=== PATIENT | female | born 1965 | race African-American/Black ===

== ENCOUNTER 2016-09-05 09:49 | Emergency (ER) | payer MEDICAID ==
[2016-04-24 08:02] VITALS: BMI 33.0
[~2016-09-05 09:49] MED LIST: ADVAIR 250/501 DISK INH; ASMANEX0.24 GM INH; ATROVENT 0.03%30 ML; BAYER CHEWABLE81 MG PO; DIOVAN80 MG PO; IPRAT-ALBUT 0.5-3 ML UPD; LEVAQUIN500 MG PO; LIPITOR20 MG PO; MUCINEX DM ER1 EAC1 PO; NEXIUM40 MG PO; NICODERM C1 PATCH .3 TD; POTASSIUM99 M1 PO; SINGULAIR10 MG PO; TOPROL XL25 MG PO; ZESTORETIC 10/11 TAB PO; [UNRECOGNIZED DRUG - OTHER] PO
== END 2016-09-05 11:36 | disposition home or self-care (01) ==
LOC: D.ER 09:49
DX: S39.012A Strain of muscle, fascia and tendon of lower back, initial encounter (principal); W01.0XXA Fall on same level from slipping, tripping and stumbling without subsequent striking against object, initial encounter; Y93.E5 Activity, floor mopping and cleaning; Y92.89 Other specified places as the place of occurrence of the external cause; M62.838 Other muscle spasm; J45.909 Unspecified asthma, uncomplicated; I10 Essential (primary) hypertension; E87.6 Hypokalemia

== ENCOUNTER 2016-11-22 08:39 | Emergency (ER) | payer MEDICAID ==
[2016-04-24 08:02] VITALS: BMI 33.0
== END 2016-11-22 10:55 | disposition home or self-care (01) ==
LOC: D.ER 08:39
DX: J20.9 Acute bronchitis, unspecified (principal); J45.909 Unspecified asthma, uncomplicated; I10 Essential (primary) hypertension; E87.6 Hypokalemia; F17.200 Nicotine dependence, unspecified, uncomplicated

== ENCOUNTER 2017-01-12 08:26 | Emergency (ER) | payer MEDICAID ==
[2016-04-24 08:02] VITALS: BMI 33.0
== END 2017-01-12 09:42 | disposition left against medical advice (07) ==
LOC: D.ER 08:26
DX: R05 Cough (principal)

== ENCOUNTER 2017-07-23 00:30 | Emergency (ER) | payer SELFPAY ==
[2016-04-24 08:02] VITALS: BMI 33.0
[2017-07-23 02:45] LABS: HCG SERUM NEGATIVE (NEGATIVE)
== END 2017-07-23 04:25 | disposition home or self-care (01) ==
LOC: D.ER 00:30
PROVIDERS: Emergency Medicine
DX: T76.21XA Adult sexual abuse, suspected, initial encounter (principal); R07.89 Other chest pain; I10 Essential (primary) hypertension; R07.81 Pleurodynia; M54.2 Cervicalgia; R10.9 Unspecified abdominal pain; F17.200 Nicotine dependence, unspecified, uncomplicated

== ENCOUNTER 2017-08-16 08:16 | Emergency (ER) | payer SELFPAY ==
[2016-04-24 08:02] VITALS: BMI 33.0
[2017-08-16 10:50] LABS: BASOPHILS 0.4 % (0-2); EOSINOPHILS 1.6 % (0-7); HEMATOCRIT 41.1 % (36.0-48.0); HEMOGLOBIN 13.3 g/dL (12-16); IMMATURE GRANULOCYTES 0.1 % (0-5); LYMPHOCYTES 41.6 % (15-50); MCH 31.4 pg (26.0-34.0); MCHC 32.4 g/dL (31.0-37.0); MCV 97.2 fL (80.0-100.0); MEAN PLATELET VOLUME 10.1 fL (7.4-10.4); MONOCYTES 9.9 % (2-11); NEUTROPHILS 46.4 % (40-80); RBC 4.23 10x6/uL (4.00-5.40); RDW 13.6 % (11.5-14.5); WBC 7.7 10x3/uL (4.8-10.8)
[2017-08-16 10:57] LABS: PLATELET COUNT 237 10x3/uL (130-400)
[2017-08-16 11:00] LABS: ALBUMIN 3.6 g/dL (3.4-5.0); ALKALINE PHOSPHATASE 116 U/L (46-116); ALT (SGPT) 34 U/L (10-68); BILIRUBIN - TOTAL 0.43 mg/dL (0.2-1.3); CALC OSMOLALITY 273 mosm/kg (275-300); CALCIUM 8.7 mg/dL (8.5-10.1); CHLORIDE - SERUM 102 mmol/L (98-107); CREATININE - SERUM 0.8 mg/dL (0.6-1.3); GLUCOSE 84 mg/dL (74-106); POTASSIUM - SERUM 3.8 mmol/L (3.5-5.1); PROTEIN - SERUM 7.7 g/dL (6.4-8.2); SODIUM 138 mmol/L (136-145); UREA NITROGEN 11 mg/dL (7-18); eGFR NON AFRICAN AMERICAN 81 mL/min (90-120)
== END 2017-08-16 10:53 | disposition home or self-care (01) ==
LOC: D.ER 08:16
PROVIDERS: Emergency Medicine
DX: J11.1 Influenza due to unidentified influenza virus with other respiratory manifestations (principal); I10 Essential (primary) hypertension; J45.909 Unspecified asthma, uncomplicated

== ENCOUNTER 2017-10-18 13:51 | Emergency (ER) | payer SELFPAY ==
[2016-04-24 08:02] VITALS: BMI 33.0
== END 2017-10-18 14:57 | disposition home or self-care (01) ==
LOC: D.ER 13:51
DX: S60.411A Abrasion of left index finger, initial encounter (principal); Y04.1XXA Assault by human bite, initial encounter; Y93.89 Activity, other specified; Y92.89 Other specified places as the place of occurrence of the external cause; F17.200 Nicotine dependence, unspecified, uncomplicated

== ENCOUNTER 2017-12-30 08:37 | Emergency (ER) | payer SELFPAY ==
[2016-04-24 08:02] VITALS: BMI 33.0
== END 2017-12-30 08:50 | disposition home or self-care (01) ==
LOC: D.ER 08:37
DX: M79.673 Pain in unspecified foot (principal)

== ENCOUNTER 2018-02-28 18:30 | Emergency (ER) | payer MEDICAID ==
[~2018-02-28] VITALS: Ht 157.5 cm; Wt 81.8 kg
[2018-02-28 18:40] VITALS: Ht 157.5 cm; Wt 81.8 kg
[2018-02-28] MEDS ORDERED: VIBRAMYCIN 100100 MG PO (21:51)
[2018-02-28] MEDS ORDERED: PHENERGAN DM SYR5 ML PO (21:51)
[2018-02-28 23:04] VITALS: BP 174/99
== END 2018-02-28 23:05 | disposition home or self-care (01) ==
LOC: D.ER 18:30
DX: J06.9 Acute upper respiratory infection, unspecified (principal); R05 Cough; R09.89 Other specified symptoms and signs involving the circulatory and respiratory systems; F17.200 Nicotine dependence, unspecified, uncomplicated

== ENCOUNTER 2018-03-15 08:34 | Emergency (ER) | payer MEDICAID ==
[~2018-03-15] VITALS: Ht 157.5 cm; Wt 81.6 kg
[~2018-03-15 08:34] MED LIST changes: +PHENERGAN DM SYR5 ML PO; +VIBRAMYCIN 100100 MG PO
[2018-03-15 08:56] VITALS: Ht 157.5 cm; Wt 81.6 kg
[2018-03-15] MEDS ORDERED: MEDROL DOSE PACK4 MG PO (11:21)
[2018-03-15 12:13] VITALS: BP 181/098
== END 2018-03-15 12:14 | disposition home or self-care (01) ==
LOC: D.ER 08:34
DX: J40 Bronchitis, not specified as acute or chronic (principal); Z87.09 Personal history of other diseases of the respiratory system; R09.89 Other specified symptoms and signs involving the circulatory and respiratory systems; I10 Essential (primary) hypertension

== ENCOUNTER 2018-11-08 16:04 | Emergency (ER) | payer OTHER ==
[~2018-11-08] VITALS: Ht 157.5 cm; Wt 84.1 kg
[~2018-11-08 16:04] MED LIST changes: +MEDROL DOSE PACK4 MG PO
[2018-11-08 16:19] VITALS: Ht 157.5 cm; Wt 84.1 kg
[2018-11-08 16:46] LABS: BASOPHILS 0.2 % (0-2); EOSINOPHILS 1.7 % (0-7); HEMATOCRIT 34.8 % (36.0-48.0); HEMOGLOBIN 11.3 g/dL (12-16); IMMATURE GRANULOCYTES 0.1 % (0-5); LYMPHOCYTES 34.9 % (15-50); MCH 30.9 pg (26.0-34.0); MCHC 32.5 g/dL (31.0-37.0); MCV 95.1 fL (80.0-100.0); MEAN PLATELET VOLUME 10.3 fL (7.4-10.4); MONOCYTES 8.7 % (2-11); NEUTROPHILS 54.4 % (40-80); RBC 3.66 10x6/uL (4.00-5.40); RDW 12.7 % (11.5-14.5)
[2018-11-08 17:02] LABS: ALBUMIN 3.4 g/dL (3.4-5.0); ALKALINE PHOSPHATASE 101 U/L (46-116); ALT (SGPT) 22 U/L (10-68); BILIRUBIN - TOTAL 0.26 mg/dL (0.2-1.3); CALC OSMOLALITY 285 mosm/kg (275-300); CALCIUM 9.2 mg/dL (8.5-10.1); CHLORIDE - SERUM 106 mmol/L (98-107); CREATININE - SERUM 0.8 mg/dL (0.6-1.3); GLUCOSE 109 mg/dL (74-106); MAGNESIUM - SERUM 1.7 mg/dL (1.8-2.4); PROTEIN - SERUM 7.8 g/dL (6.4-8.2); SODIUM 143 mmol/L (136-145); UREA NITROGEN 13 mg/dL (7-18); eGFR NON AFRICAN AMERICAN 80 mL/min (90-120)
[2018-11-08 17:04] LABS: PLATELET COUNT 285 10x3/uL (130-400)
[2018-11-08 17:56] LABS: APPEARANCE CLEAR (CLEAR); BILIRUBIN NEGATIVE (NEGATIVE); COLOR YELLOW (YELLOW); GLUCOSE 100 mg/dL (NEGATIVE); KETONE NEGATIVE (NEGATIVE); NITRITE NEGATIVE (NEGATIVE); PROTEIN NEGATIVE (NEGATIVE); SPECIFIC GRAVITY 1.025 (1.005-1.020); UROBILINOGEN NORMAL (NORMAL)
[2018-11-08 18:06] LABS: UDS - AMPHET NEGATIVE QUAL (NEGATIVE); UDS - BARB NEGATIVE QUAL (NEGATIVE); UDS - BENZO NEGATIVE QUAL (NEGATIVE); UDS - COCAINE POSITIVE QUAL (NEGATIVE); UDS - OPIATE NEGATIVE QUAL (NEGATIVE); UDS - PCP NEGATIVE QUAL (NEGATIVE); UDS - THC POSITIVE QUAL (NEGATIVE)
[2018-11-08] MEDS ORDERED: SEROQUEL100 MG PO (18:55)
[2018-11-08 20:07] VITALS: BP 134/78
== END 2018-11-08 20:10 | disposition home or self-care (01) ==
LOC: D.ER 16:04
PROVIDERS: Emergency Medicine
DX: R44.0 Auditory hallucinations (principal); F14.10 Cocaine abuse, uncomplicated

== ENCOUNTER 2019-04-07 11:02 | Emergency (ER) | payer MEDICAID ==
[~2019-04-07] VITALS: Ht 157.5 cm; Wt 85.0 kg
[~2019-04-07 11:02] MED LIST changes: +SEROQUEL100 MG PO
[2019-04-07 11:05] VITALS: Ht 157.5 cm; Wt 85.0 kg
[2019-04-07 11:39] LABS: BASOPHILS 0.2 % (0-2); EOSINOPHILS 1.5 % (0-7); HEMATOCRIT 38.5 % (36.0-48.0); HEMOGLOBIN 12.3 g/dL (12-16); IMMATURE GRANULOCYTES 0.3 % (0-5); LYMPHOCYTES 28.5 % (15-50); MCH 31.1 pg (26.0-34.0); MCHC 31.9 g/dL (31.0-37.0); MCV 97.2 fL (80.0-100.0); MEAN PLATELET VOLUME 10.1 fL (7.4-10.4); MONOCYTES 8.2 % (2-11); NEUTROPHILS 61.3 % (40-80); PLATELET COUNT 283 10x3/uL (130-400); RBC 3.96 10x6/uL (4.00-5.40)
[2019-04-07 11:49] LABS: INR 1.02 (0.85-1.17); PROTIME 12.9 SECONDS (11.6-15.0)
[2019-04-07 12:01] LABS: ALBUMIN 3.5 g/dL (3.4-5.0); ALKALINE PHOSPHATASE 130 U/L (46-116); ALT (SGPT) 27 U/L (10-68); BILIRUBIN - TOTAL 0.31 mg/dL (0.2-1.3); CALC OSMOLALITY 281 mosm/kg (275-300); CALCIUM 9.1 mg/dL (8.5-10.1); CARBON DIOXIDE 21.7 mmol/L (21.0-32.0); CHLORIDE - SERUM 104 mmol/L (98-107); CREATININE - SERUM 0.7 mg/dL (0.6-1.3); GLUCOSE 150 mg/dL (74-106); POTASSIUM - SERUM 4.4 mmol/L (3.5-5.1); SODIUM 139 mmol/L (136-145); UREA NITROGEN 14 mg/dL (7-18); eGFR NON AFRICAN AMERICAN > 90 mL/min (90-120)
[2019-04-07 12:09] LABS: CREATINE KINASE 200 UL (21-215); PRO BNP 73 pg/mL (0-125)
[2019-04-07 12:10] LABS: TROPONIN-I < 0.017 ng/mL (0.000-0.060)
[2019-04-07] MEDS ORDERED: ZYRTEC10 MG PO (13:03)
[2019-04-07] MEDS ORDERED: ASMANEX0.24 GM INH (13:03)
[2019-04-07] MEDS ORDERED: FLUTICASONE PRO16 GM NASAL (13:03)
[2019-04-07] MEDS ORDERED: IPRAT-ALBUT 0.5-3 ML UPD (13:03)
[2019-04-07 14:00] VITALS: BP 122/79
== END 2019-04-07 14:01 | disposition home or self-care (01) ==
LOC: D.ER 11:02
PROVIDERS: Family Medicine
DX: J45.901 Unspecified asthma with (acute) exacerbation (principal)

== ENCOUNTER 2019-05-06 11:23 | Emergency (ER) | payer MEDICAID ==
[~2019-05-06] VITALS: Ht 157.5 cm; Wt 80.9 kg
[~2019-05-06 11:23] MED LIST changes: +FLUTICASONE PRO16 GM NASAL; +ZYRTEC10 MG PO
[2019-05-06 11:32] VITALS: Ht 157.5 cm; Wt 80.9 kg
[2019-05-06 11:54] LABS: BASOPHILS 0.3 % (0-2); EOSINOPHILS 1.4 % (0-7); HEMATOCRIT 37.3 % (36.0-48.0); HEMOGLOBIN 11.9 g/dL (12-16); IMMATURE GRANULOCYTES 0.4 % (0-5); LYMPHOCYTES 25.6 % (15-50); MCH 31.6 pg (26.0-34.0); MCHC 31.9 g/dL (31.0-37.0); MCV 98.9 fL (80.0-100.0); MEAN PLATELET VOLUME 10.4 fL (7.4-10.4); MONOCYTES 7.2 % (2-11); NEUTROPHILS 65.1 % (40-80); PLATELET COUNT 301 10x3/uL (130-400); RBC 3.77 10x6/uL (4.00-5.40); RDW 13.4 % (11.5-14.5); WBC 12.2 10x3/uL (4.8-10.8)
[2019-05-06 12:01] LABS: CALC OSMOLALITY 282 mosm/kg (275-300); CALCIUM 9.2 mg/dL (8.5-10.1); CARBON DIOXIDE 27.6 mmol/L (21.0-32.0); CHLORIDE - SERUM 104 mmol/L (98-107); CREATININE - SERUM 0.7 mg/dL (0.6-1.3); GLUCOSE 145 mg/dL (74-106); POTASSIUM - SERUM 3.3 mmol/L (3.5-5.1); SODIUM 141 mmol/L (136-145); UREA NITROGEN 9 mg/dL (7-18); eGFR NON AFRICAN AMERICAN > 90 mL/min (90-120)
[2019-05-06 12:07] LABS: ALBUMIN 3.2 g/dL (3.4-5.0); ALKALINE PHOSPHATASE 139 U/L (46-116); ALT (SGPT) 31 U/L (10-68)
[2019-05-06] MEDS ORDERED: MEDROL DOSE PACK4 MG PO (13:43)
[2019-05-06 13:48] VITALS: BP 132/75
== END 2019-05-06 13:50 | disposition home or self-care (01) ==
LOC: D.ER 11:23
PROVIDERS: Family Medicine
DX: J40 Bronchitis, not specified as acute or chronic (principal); I10 Essential (primary) hypertension; F17.210 Nicotine dependence, cigarettes, uncomplicated

== ENCOUNTER 2019-05-23 11:03 | Inpatient (IN) | payer OTHER ==
[~2019-05-23] VITALS: Ht 154.9 cm; Wt 91.0 kg
--- NOTE | 2019-05-23 11:55 | NUR ---
PATIENT JUST ARRIVED TO THE FLOOR. SHE IS ON CONTACT ISOLATION FOR SHINGLES, WHICH IS USUALLY AIRBORN PRECAUTION, HOWEVER, SHE IS ON CONTACT ACCORDING TO ALTERNATIVE ENERGY TECHNICIAN AND CHARGE NURSE, AND INFECTION CONTROL.
--- NOTE | 2019-05-23 12:35 | NUR ---
IV STARTED IN THE RIGHT FOREARM. 20 G ONE STICK. PATIENT TOLERATED. IV FLUIDS STARTED ORDERED. SHE IS ON CONTACT PRECAUTIONS. SHE IS SITTING UP IN BED AND EATTING BREAKFAST. SHE HAS HER LEFT EYE SWOLLEN SHUT. SHE THOUGHT SHE WAS BIT BY A INSECT. ON THE FOREHEAD THERE WAS A SORE THAT LOOKS LIKE A BITE. THAT WAS THURSDAY. SHE WENT TO HER DR OFFICE, DR SAID IT LOOKED LIKE SHINGLES. PATIENT REPORTS THAT HER GRANDMOTHER HAS SHINGLES RIGHT NOW.
[2019-05-23 12:46] LABS: BASOPHILS 0.4 % (0-2); EOSINOPHILS 1.8 % (0-7); HEMOGLOBIN 12.2 g/dL (12-16); IMMATURE GRANULOCYTES 0.1 % (0-5); LYMPHOCYTES 33.6 % (15-50); MCH 31.3 pg (26.0-34.0); MCHC 31.3 g/dL (31.0-37.0); MEAN PLATELET VOLUME 10.6 fL (7.4-10.4); MONOCYTES 9.6 % (2-11); NEUTROPHILS 54.5 % (40-80); PLATELET COUNT 277 10x3/uL (130-400); RDW 13.2 % (11.5-14.5); WBC 6.8 10x3/uL (4.8-10.8)
[2019-05-23 12:51] LABS: CALC OSMOLALITY 279 mosm/kg (275-300); CHLORIDE - SERUM 106 mmol/L (98-107); CREATININE - SERUM 0.7 mg/dL (0.6-1.3); GLUCOSE 105 mg/dL (74-106); POTASSIUM - SERUM 3.8 mmol/L (3.5-5.1); SODIUM 141 mmol/L (136-145); UREA NITROGEN 9 mg/dL (7-18); eGFR NON AFRICAN AMERICAN > 90 mL/min (90-120)
--- NOTE | 2019-05-23 12:53 | NUR ---
CALLED PHARMACY TO GET ANTIBIOTICS BROUGHT UP, THEY WERE STILL PREPARING THEM.
[2019-05-23 12:57] LABS: ALBUMIN 3.3 g/dL (3.4-5.0); ALKALINE PHOSPHATASE 122 U/L (46-116); ALT (SGPT) 27 U/L (10-68); BILIRUBIN - TOTAL 0.36 mg/dL (0.2-1.3); C-REACTIVE PROTEIN 0.6 mg/dL (0.0-0.9); PROTEIN - SERUM 7.7 g/dL (6.4-8.2)
[2019-05-23 14:06] VITALS: BP 140/84; Ht 154.9 cm; Wt 91.0 kg
--- NOTE | 2019-05-23 14:59 | NUR ---
NEW IV IN LEFT FOREARM WITH ANTIBIOTICS INFUSING ORDERED.
--- NOTE | 2019-05-23 15:07 | NUR ---
THE ANTIBIOTIC WAS IN THE CASSETTE AND I HAD LOOKED PAST IT.
--- NOTE | 2019-05-23 15:08 | NUR ---
IV START IN LEFT FOREARM. 22 GAUGE. IV IN RIGHT FOREARM HAD TO BE REMOVED.
[2019-05-23 15:58] LABS: UDS - AMPHET NEGATIVE QUAL (NEGATIVE); UDS - BARB NEGATIVE QUAL (NEGATIVE); UDS - BENZO NEGATIVE QUAL (NEGATIVE); UDS - COCAINE POSITIVE QUAL (NEGATIVE); UDS - OPIATE NEGATIVE QUAL (NEGATIVE); UDS - PCP NEGATIVE QUAL (NEGATIVE); UDS - THC NEGATIVE QUAL (NEGATIVE)
[2019-05-23 16:01] LABS: APPEARANCE CLEAR (CLEAR); BILIRUBIN NEGATIVE (NEGATIVE); COLOR YELLOW (YELLOW); GLUCOSE 100 mg/dL (NEGATIVE); KETONE NEGATIVE (NEGATIVE); NITRITE NEGATIVE (NEGATIVE); PROTEIN NEGATIVE (NEGATIVE); SPECIFIC GRAVITY 1.025 (1.005-1.020); UROBILINOGEN NORMAL (NORMAL)
[2019-05-23 16:02] LABS: RED CELLS - URINE OCC /hpf (0-5); WHITE CELLS - URINE 0-5 /hpf (NEGATIVE)
[2019-05-23 16:05] LABS: BACTERIA FEW /hpf (NEGATIVE); EPITHELIAL CELLS 0-5 /hpf (0-5)
[2019-05-23 17:00] VITALS: BP 170/74
--- NOTE | 2019-05-23 19:15 | NUR ---
RECEIVED REPORT, WILL ASSUME CARE OF PT, ASKING FOR JELLO, ICECREAM AND WATER, WILL PROVIDE, DENIES ANY OTHER NEEDS AT THIS TIME, BED IS LOW, SRX1, CALL LIGHT IN REACH, WILL CONTINUE PLAN OF CARE
[2019-05-23 20:00] VITALS: BP 158/91
[2019-05-24] VITALS: BP 137/67
--- NOTE | 2019-05-24 03:51 | NUR ---
I have reviewed this patient and I concur with the Shift Assessment completed by the Licensed Practical Nurse today this shift.
[2019-05-24 04:00] VITALS: BP 118/79
[2019-05-24 05:31] LABS: BASOPHILS 0.1 % (0-2); EOSINOPHILS 0 % (0-7); HEMATOCRIT 38.2 % (36.0-48.0); IMMATURE GRANULOCYTES 0.4 % (0-5); LYMPHOCYTES 13.8 % (15-50); MCHC 31.4 g/dL (31.0-37.0); MCV 98.7 fL (80.0-100.0); MONOCYTES 4.3 % (2-11); NEUTROPHILS 81.4 % (40-80); PLATELET COUNT 288 10x3/uL (130-400); RBC 3.87 10x6/uL (4.00-5.40)
[2019-05-24 05:48] LABS: ALBUMIN 3.1 g/dL (3.4-5.0); ANION GAP 15.5 mmol/L (8-16); BILIRUBIN - TOTAL 0.19 mg/dL (0.2-1.3); CALCIUM 9.7 mg/dL (8.5-10.1); CARBON DIOXIDE 23.7 mmol/L (21.0-32.0); POTASSIUM - SERUM 4.2 mmol/L (3.5-5.1); PROTEIN - SERUM 7.9 g/dL (6.4-8.2)
[2019-05-24 05:55] LABS: WBC 13.6 10x3/uL (4.8-10.8)
--- NOTE | 2019-05-24 07:09 | NUR ---
RECIEVED REPORT. PATIENT IS RESTING QUIETLY AT THIS TIME. DENIES ANY NEEDS. SHE IS ON CONTACT ISOLATION FOR SHINGLES. NORMALLY WE DO AIRBORN FOR THAT, BUT BECAUSE THE WOUND IS CLOSED AND DRY, SHE IS ONLY ON CONTACT ISOLATION.
[2019-05-24 09:01] VITALS: BP 140/82
[2019-05-24 13:25] VITALS: BP 144/98
--- NOTE | 2019-05-24 13:44 | MORECARE ---
CASE MANAGEMENT DISCHARGE SUMMARY PATIENT: JUAN DIAZ UNIT: [id number] ADM DATE: 05/23/19 AGE: 53 : 69 SEX: F ROOM/BED: D.1966 AUTHOR: JONES,DOC PHYSICIAN: REFERRING PHYSICIAN: JACKELINE SIMS MD DATE OF SERVICE: 05/24/19 Discharge Plan Patient Name: JUAN DIAZ Facility: [facility]:[place] : 1965 Planned Disposition: Home Anticipated Discharge Date: 05/26/19 Discharge Date: Expected LOS: 3 Initial Reviewer: [email or web address] Initial Review Date: 05/23/2019 Generated: 05/24/19 2:44 pm Comments DCP- Discharge Planning Updated by [email or web address]: Shayla Mike on 05/24/19 12:[address] DC PLAN: Home w/ room-mate. ANTICIPATED DC NEEDS: Denied known dc needs. CM met with patient to complete initial dc planning assessment. CM educated patient on the CM role and verbal consent given by patient to complete assessment. CM verified patient's address, phone number, and emergency contact phone numbers. Patient lives at home with a room-mate. She reports she is independent and has everything she needs at home to safely care for herself. At discharge patient plans to return home and feels this is a safe discharge. CM discussed availability of home health, rehab services, and medical equipment. Patient denied known discharge needs at this time. Patient reports her friend Denis Quintero will transport her home at time of discharge. CM will continue to follow and will assist as needed with dc plans/needs. Shayla Mike RN, [facility] DCPIA - Discharge Planning Initial Assessment Updated by [email or web address]: Shayla Mike on 05/24/19 1:39 pm * Is the patient Alert and Oriented? Yes * How many steps to enter\exit or inside your home? * PCP Dr. Sims * Pharmacy [facility] * Preadmission Environment Home Alone * ADLs Independent * Equipment None * List name and contact numbers for known caregivers / representatives who currently or will assist patient after discharge: Denis Quintero - steff- [phone] * Verbal permission to speak to the caregivers and representatives has been obtained from the patient. Yes * Community resources currently utilized None * Additional services required to return to the preadmission environment? No * Can the patient safely return to the preadmission environment? Yes * Has this patient been hospitalized within the prior 30 days at any hospital? No Patient Name: JUAN DIAZ Page [id number] at 1344 All edits/amendments must be made on the electronic document DICTATION DATE: 05/24/19 134 ADVANCED MANUFACTURING CONSULTANT: EDY 05/24/19 1344 RPT#: [id number] DC DATE: STATUS: ADM IN [facility] [address] [place] [address] END OF REPORT
[2019-05-24 17:15] VITALS: BP 145/87
--- NOTE | 2019-05-24 19:00 | NUR ---
EVENING ROUNDS COMPLETE. PT SITTING UP IN BED, NO SIGNS OF DISTRESS. AAOX4. PT DENIES ANY NEEDS AT THIS TIME. CL IN REACH, BED IN LOWEST POSITION.
[2019-05-24 20:00] VITALS: BP 162/83
[2019-05-25] VITALS: BP 133/83
[2019-05-25 06:27] VITALS: BP 146/88
[2019-05-25 06:53] LABS: ALBUMIN 3.1 g/dL (3.4-5.0); ANION GAP 15.9 mmol/L (8-16); BILIRUBIN - TOTAL 0.16 mg/dL (0.2-1.3); CALCIUM 9.3 mg/dL (8.5-10.1); CARBON DIOXIDE 22.8 mmol/L (21.0-32.0); POTASSIUM - SERUM 4.7 mmol/L (3.5-5.1); PROTEIN - SERUM 7.4 g/dL (6.4-8.2)
[2019-05-25 07:04] LABS: BASOPHILS 0.1 % (0-2); EOSINOPHILS 0 % (0-7); HEMATOCRIT 35.8 % (36.0-48.0); HEMOGLOBIN 11.1 g/dL (12-16); IMMATURE GRANULOCYTES 0.5 % (0-5); MCH 30.9 pg (26.0-34.0); MCV 99.7 fL (80.0-100.0); MEAN PLATELET VOLUME 11.2 fL (7.4-10.4); MONOCYTES 7.7 % (2-11); NEUTROPHILS 77.7 % (40-80); PLATELET COUNT 319 10x3/uL (130-400); RBC 3.59 10x6/uL (4.00-5.40); RDW 13.1 % (11.5-14.5)
[2019-05-25 07:05] LABS: WBC 18.8 10x3/uL (4.8-10.8)
--- NOTE | 2019-05-25 07:10 | NUR ---
PT LYING IN BED WITH HOB ELEVATED. EYES CLOSED. CHEST RISING AND FALLING. ROOM AIR. LEFT FA 22G IV INFUSING NS AT 75ML/HR. LEFT EYE SWOLLEN. BED LOW. CL IN REACH. WILL CONTINUE TO MONITOR.
[2019-05-25 09:36] VITALS: BP 164/92
--- NOTE | 2019-05-25 11:23 | NUR ---
SCD'S PLACED ON PT.
--- NOTE | 2019-05-25 14:35 | NUR ---
PT LYING IN BED. EYES CLOSED. CHEST RISING AND FALLING. BED LOW. CL IN REACH. WILL CONTINUE TO MONITOR.
--- NOTE | 2019-05-25 16:21 | NUR ---
PT STATED TO COMPUTATIONAL GENETICIST SHE WANTS TO SEE HER DOCTOR AND SHE IS LEAVING TODAY WITH OR WITHOUT HIS CONSENT. RADHA MCWILLIAMS.
--- NOTE | 2019-05-25 17:00 | NUR ---
SPOKE WITH JANINE BOYD ABOUT PT WANTING TO BE DISCHARGED AND IS WANTING TO SEE HER. JANINE MCWILLIAMS STATES "HER AND DR. HARRIS ROUNDED ON PT BUT SHE WAS ASLEEP AND THEY DID NOT WANT TO WAKE HER. BUT DR. HARRIS DID LOOK AT PT'S EYE AND THINKS THAT IT IS HEALING BUT IT IS NOT WHERE IT NEEDS TO BE AND PT IS NOT READY FOR DISCHARGE. IF PT WANTS TO LEAVE SHE WILL HAVE TO LEAVE AMA." I VERBALIZED UNDERSTANDING. I ASKED IF WE COULD GET SOMETHING TO HELP CALM PT DOWN AND AND JANINE MCWILLIAMS STATES "NO PT IS NOT HAVING DT'S." I VERBALIZED UNDERSTANDING. I SPOKE WTIH PT AND STATED TO HER EVERYTHING JANINE MCWILLIAMS STATED TO ME AND SHE SAID THAT SHE WANTS TO LEAVE AMA. I STATED TO PT "IF YOU LEAVE AMA YOUR HEALTH INSURANCE WILL NOT COVER YOUR STAY AND YOU WILL HAVE TO PAY OUT OF POCKET." PT VERBALIZED UNDERSTANDING AND STATES "I WANT TO LEAVE ANYWAY." I STATED TO PT I WILL GET THE PAPERWORK.
--- NOTE | 2019-05-25 17:14 | NUR ---
LEFT FA 22G IV DC'D WITH CATH INTACT. PT SIGNED AMA FORM AND CALLED HER RIDE. PAGED JANINE MCWILLIAMS TO NOTIFY HER PT IS LEAVING AMA.
--- NOTE | 2019-05-25 17:44 | NUR ---
PT TAKEN DOWN VIA WC BY JARAD AND LEFT WITH FRIEND IN THEIR CAR.
--- NOTE | 2019-05-27 09:54 | MORECARE ---
CASE MANAGEMENT DISCHARGE SUMMARY PATIENT: JUAN DIAZ UNIT: [id number] ADM DATE: 05/23/19 AGE: 53 : 69 SEX: F ROOM/BED: D.6326 AUTHOR: JONES,DOC PHYSICIAN: REFERRING PHYSICIAN: JACKELINE SIMS MD DATE OF SERVICE: 05/27/19 Discharge Plan Patient Name: JUAN DIAZ Facility: [facility]:[place] : 1965 Planned Disposition: Home Anticipated Discharge Date: 05/25/19 Discharge Date: 05/25/2019 Expected LOS: 2 Initial Reviewer: [email or web address] Initial Review Date: 05/23/2019 Generated: 05/27/19 10:53 am DCP- Discharge Planning Updated by [email or web address]: Shayla Mike on 05/24/19 12:[address] DC PLAN: Home w/ room-mate. ANTICIPATED DC NEEDS: Denied known dc needs. CM met with patient to complete initial dc planning assessment. CM educated patient on the CM role and verbal consent given by patient to complete assessment. CM verified patient's address, phone number, and emergency contact phone numbers. Patient lives at home with a room-mate. She reports she is independent and has everything she needs at home to safely care for herself. At discharge patient plans to return home and feels this is a safe discharge. CM discussed availability of home health, rehab services, and medical equipment. Patient denied known discharge needs at this time. Patient reports her friend Denis Quintero will transport her home at time of discharge. CM will continue to follow and will assist as needed with dc plans/needs. Shayla Mike RN, [facility] DCPIA - Discharge Planning Initial Assessment Updated by [email or web address]: Shayla Mike on 05/24/19 1:39 pm * Is the patient Alert and Oriented? Yes * How many steps to enter\exit or inside your home? * PCP Dr. Sims * Pharmacy [facility] * Preadmission Environment Home Alone * ADLs Independent * Equipment None * List name and contact numbers for known caregivers / representatives who currently or will assist patient after discharge: Denis Quintero - friend- [phone] * Verbal permission to speak to the caregivers and representatives has been obtained from the patient. Yes * Community resources currently utilized None * Additional services required to return to the preadmission environment? No * Can the patient safely return to the preadmission environment? Yes * Has this patient been hospitalized within the prior 30 days at any hospital? No Last DP export: 05/24/19 12:44 Patient Name: JUAN DIAZ Page 10292 at 0954 All edits/amendments must be made on the electronic document DICTATION DATE: 05/27/19952 BRIM CUTTER: EDY 05/27/19952 RPT#: [id number] DC DATE:05/25/19 STATUS: DIS IN [facility] [address] [place] [address] END OF REPORT
== END 2019-05-25 17:44 | disposition left against medical advice (07) | DRG 121 ==
LOC: D.M2 11:03
PROVIDERS: Family Medicine; ADMIT Family Medicine; ATTEND Family Medicine
DX: H05.012 Cellulitis of left orbit (principal); B02.30 Zoster ocular disease, unspecified; F17.213 Nicotine dependence, cigarettes, with withdrawal; H00.036 Abscess of eyelid left eye, unspecified eyelid

== ENCOUNTER 2019-05-29 09:29 | Emergency (ER) | payer OTHER ==
[~2019-05-29] VITALS: Ht 154.9 cm; Wt 93.2 kg
[2019-05-29 09:33] VITALS: Ht 154.9 cm; Wt 93.2 kg
[2019-05-29 10:07] LABS: BASOPHILS 0.4 % (0-2); EOSINOPHILS 1.7 % (0-7); HEMATOCRIT 36.5 % (36.0-48.0); HEMOGLOBIN 11.4 g/dL (12-16); IMMATURE GRANULOCYTES 0.9 % (0-5); LYMPHOCYTES 38.8 % (15-50); MCH 31.2 pg (26.0-34.0); MCHC 31.2 g/dL (31.0-37.0); MONOCYTES 8.3 % (2-11); NEUTROPHILS 49.9 % (40-80); PLATELET COUNT 305 10x3/uL (130-400); RBC 3.65 10x6/uL (4.00-5.40); RDW 13.2 % (11.5-14.5); WBC 12.3 10x3/uL (4.8-10.8)
[2019-05-29 10:22] LABS: CALC OSMOLALITY 285 mosm/kg (275-300); CALCIUM 8.8 mg/dL (8.5-10.1); CARBON DIOXIDE 26.6 mmol/L (21.0-32.0); CHLORIDE - SERUM 109 mmol/L (98-107); CREATININE - SERUM 0.8 mg/dL (0.6-1.3); SODIUM 141 mmol/L (136-145); UREA NITROGEN 15 mg/dL (7-18); eGFR NON AFRICAN AMERICAN 80 mL/min (90-120)
[2019-05-29 10:23] LABS: GLUCOSE 175 mg/dL (74-106)
[2019-05-29] MEDS ORDERED: PREDNISONE10 MG PO (10:26)
[2019-05-29] MEDS ORDERED: ZOVIRAX800 MG PO (10:26)
[2019-05-29] MEDS ORDERED: GABAPENTIN100 MG PO (10:26)
[2019-05-29 10:28] LABS: ALBUMIN 2.7 g/dL (3.4-5.0); ALKALINE PHOSPHATASE 126 U/L (46-116); ALT (SGPT) 26 U/L (10-68); BILIRUBIN - TOTAL 0.18 mg/dL (0.2-1.3)
[2019-05-29 10:54] VITALS: BP 138/89
== END 2019-05-29 10:55 | disposition home or self-care (01) ==
LOC: D.ER 09:29
PROVIDERS: Family Medicine
DX: B02.9 Zoster without complications (principal); R51 Headache; E11.9 Type 2 diabetes mellitus without complications; I10 Essential (primary) hypertension; Z72.0 Tobacco use; J44.9 Chronic obstructive pulmonary disease, unspecified

== ENCOUNTER 2019-07-20 04:54 | Emergency (ER) | payer OTHER ==
[~2019-07-20] VITALS: Ht 154.9 cm; Wt 93.6 kg
[~2019-07-20 04:54] MED LIST changes: +GABAPENTIN100 MG PO; +PREDNISONE10 MG PO; +ZOVIRAX800 MG PO
[2019-07-20 04:59] VITALS: Ht 154.9 cm; Wt 93.6 kg
[2019-07-20 05:46] LABS: BASOPHILS 0.1 % (0-2); EOSINOPHILS 0.6 % (0-7); HEMATOCRIT 35.8 % (36.0-48.0); HEMOGLOBIN 11.3 g/dL (12-16); IMMATURE GRANULOCYTES 0.3 % (0-5); LYMPHOCYTES 19.3 % (15-50); MCH 29.7 pg (26.0-34.0); MCHC 31.6 g/dL (31.0-37.0); MEAN PLATELET VOLUME 10.9 fL (7.4-10.4); MONOCYTES 8.8 % (2-11); NEUTROPHILS 70.9 % (40-80); PLATELET COUNT 286 10x3/uL (130-400); RBC 3.81 10x6/uL (4.00-5.40); RDW 13.6 % (11.5-14.5); WBC 15.6 10x3/uL (4.8-10.8)
[2019-07-20 06:03] LABS: CALC OSMOLALITY 270 mosm/kg (275-300); CALCIUM 8.7 mg/dL (8.5-10.1); CARBON DIOXIDE 25.8 mmol/L (21.0-32.0); CHLORIDE - SERUM 101 mmol/L (98-107); CREATININE - SERUM 0.7 mg/dL (0.6-1.3); GLUCOSE 142 mg/dL (74-106); SODIUM 135 mmol/L (136-145); UREA NITROGEN 9 mg/dL (7-18); eGFR NON AFRICAN AMERICAN > 90 mL/min (90-120)
[2019-07-20 06:16] LABS: ALBUMIN 2.9 g/dL (3.4-5.0); ALKALINE PHOSPHATASE 126 U/L (46-116); ALT (SGPT) 25 U/L (10-68); BILIRUBIN - TOTAL 0.58 mg/dL (0.2-1.3); CKMB 1.5 U/L (0.0-3.6); CREATINE KINASE 245 UL (21-215)
[2019-07-20 06:20] LABS: POTASSIUM - SERUM 4.5 mmol/L (3.5-5.1); TROPONIN-I < 0.017 ng/mL (0.000-0.060)
[2019-07-20 09:11] VITALS: BP 135/89
== END 2019-07-20 09:12 | disposition home or self-care (01) ==
LOC: D.ER 04:54
PROVIDERS: Family Medicine
DX: J10.00 Influenza due to other identified influenza virus with unspecified type of pneumonia (principal); E11.9 Type 2 diabetes mellitus without complications; I10 Essential (primary) hypertension; J44.9 Chronic obstructive pulmonary disease, unspecified; Z72.0 Tobacco use; K21.9 Gastro-esophageal reflux disease without esophagitis

== ENCOUNTER 2019-09-26 09:49 | Emergency (ER) | payer OTHER ==
[~2019-09-26] VITALS: Ht 154.9 cm; Wt 90.9 kg
[2019-09-26 09:55] VITALS: Ht 154.9 cm; Wt 90.9 kg
[2019-09-26] MEDS ORDERED: CLEOCIN HCL300 MG PO (10:15)
[2019-09-26] MEDS ORDERED: VOLTAREN75 MG PO (10:15)
[2019-09-26 10:22] VITALS: BP 130/64
== END 2019-09-26 10:22 | disposition home or self-care (01) ==
LOC: D.ER 09:49
DX: L03.032 Cellulitis of left toe (principal); I10 Essential (primary) hypertension; J44.9 Chronic obstructive pulmonary disease, unspecified

== ENCOUNTER 2019-12-24 06:51 | Emergency (ER) | payer OTHER ==
[~2019-12-24] VITALS: Ht 154.9 cm; Wt 0.0 kg
[~2019-12-24 06:51] MED LIST changes: +CLEOCIN HCL300 MG PO; +VOLTAREN75 MG PO
[2019-12-24 07:10] VITALS: Ht 154.9 cm; Wt 0.0 kg
[2019-12-24 07:43] LABS: BASOPHILS 0.2 % (0-2); EOSINOPHILS 1.8 % (0-7); HEMOGLOBIN 11.9 g/dL (12-16); IMMATURE GRANULOCYTES 0.2 % (0-5); MCH 31.3 pg (26.0-34.0); MCHC 31.3 g/dL (31.0-37.0); MEAN PLATELET VOLUME 9.7 fL (7.4-10.4); MONOCYTES 7.3 % (2-11); NEUTROPHILS 51.5 % (40-80); PLATELET COUNT 284 10x3/uL (130-400); RDW 13.7 % (11.5-14.5); WBC 10.3 10x3/uL (4.8-10.8)
[2019-12-24 08:00] LABS: ANION GAP 13.6 mmol/L (8-16); CALCIUM 9.4 mg/dL (8.5-10.1); CARBON DIOXIDE 25.9 mmol/L (21.0-32.0); CREATININE - SERUM 0.9 mg/dL (0.6-1.3); POTASSIUM - SERUM 3.5 mmol/L (3.5-5.1)
[2019-12-24 08:11] LABS: ALBUMIN 3.5 g/dL (3.4-5.0); BILIRUBIN - TOTAL 0.29 mg/dL (0.2-1.3); PROTEIN - SERUM 7.7 g/dL (6.4-8.2)
[2019-12-24 08:22] LABS: BILIRUBIN NEGATIVE (NEGATIVE); GLUCOSE NEGATIVE (NEGATIVE); KETONE NEGATIVE (NEGATIVE); NITRITE NEGATIVE (NEGATIVE); SPECIFIC GRAVITY 1.025 (1.005-1.020); UROBILINOGEN NORMAL (NORMAL)
[2019-12-24 08:26] LABS: UDS - AMPHET NEGATIVE QUAL (NEGATIVE); UDS - BARB NEGATIVE QUAL (NEGATIVE); UDS - BENZO NEGATIVE QUAL (NEGATIVE); UDS - COCAINE POSITIVE QUAL (NEGATIVE); UDS - OPIATE NEGATIVE QUAL (NEGATIVE); UDS - PCP NEGATIVE QUAL (NEGATIVE); UDS - THC POSITIVE QUAL (NEGATIVE)
--- NOTE | 2019-12-24 08:35 | NUR ---
DR. CHAVIRA NOTIIFIED AND SITTER ORDERED. SITTER IN LINE OF SIGHT. NOTIFIED CHARGE NURSE AND ATTENDING IN REGARDS TO ASSESSMENT FINDINGS. RESOURCES GIVEN TO PT AND SAFETY PLAN INTIATTED.
[2019-12-24 12:59] VITALS: BP 132/86
== END 2019-12-24 13:00 ==
LOC: D.ER 06:51
PROVIDERS: Family Medicine
DX: R45.851 Suicidal ideations (principal); S02.5XXA Fracture of tooth (traumatic), initial encounter for closed fracture; F32.9 Major depressive disorder, single episode, unspecified; F19.10 Other psychoactive substance abuse, uncomplicated; I10 Essential (primary) hypertension; G62.9 Polyneuropathy, unspecified; J44.9 Chronic obstructive pulmonary disease, unspecified; X58.XXXA Exposure to other specified factors, initial encounter

== ENCOUNTER 2020-01-21 11:49 | Emergency (ER) | payer OTHER ==
[2020-01-21 12:25] VITALS: Ht 154.9 cm
[2020-01-21 14:42] VITALS: BP 132/86
== END 2020-01-21 14:56 | disposition home or self-care (01) ==
LOC: D.ER 11:49
DX: S00.83XA Contusion of other part of head, initial encounter (principal); S09.90XA Unspecified injury of head, initial encounter; M50.30 Other cervical disc degeneration, unspecified cervical region; R04.0 Epistaxis; W01.0XXA Fall on same level from slipping, tripping and stumbling without subsequent striking against object, initial encounter; Y93.9 Activity, unspecified; Y92.9 Unspecified place or not applicable

== ENCOUNTER 2020-12-06 10:55 | Observation (INO) | payer OTHER ==
[~2020-12-06] VITALS: Ht 154.9 cm; Wt 72.3 kg
[2020-12-06] VITALS (7 sets, daily range): BP systolic 119–132; BP diastolic 65–77
[2020-12-06 11:42] LABS: BASOPHILS 1.1 % (0-2); EOSINOPHILS 1.2 % (0-7); HEMATOCRIT 39.6 % (36.0-48.0); HEMOGLOBIN 12.7 g/dL (12-16); LYMPHOCYTES 32.6 % (15-50); MCH 29.9 pg (26.0-34.0); MCV 93.5 fL (80.0-100.0); MEAN PLATELET VOLUME 8.1 fL (7.4-10.4); MONOCYTES 8.1 % (2-11); PLATELET COUNT 277 10x3/uL (130-400); RBC 4.23 10x6/uL (4.00-5.40); RDW 16.8 % (11.5-14.5); WBC 9.5 10x3/uL (4.8-10.8)
[2020-12-06 11:54] LABS: APTT 35.5 SECONDS (22.8-39.4); INR 1.18 (0.85-1.17); PROTIME 13.9 SECONDS (11.6-15.0)
[2020-12-06 11:55] LABS: CALC OSMOLALITY 270 mosm/kg (275-300); CALCIUM 9.8 mg/dL (8.5-10.1); CARBON DIOXIDE 21.8 mmol/L (21.0-32.0); CHLORIDE - SERUM 98 mmol/L (98-107); CREATININE - SERUM 2.2 mg/dL (0.6-1.3); GLUCOSE 76 mg/dL (74-106); POTASSIUM - SERUM 5.1 mmol/L (3.5-5.1); SODIUM 131 mmol/L (136-145); UREA NITROGEN 38 mg/dL (7-18); eGFR NON AFRICAN AMERICAN 25 mL/min (90-120)
[2020-12-06 12:10] LABS: ALKALINE PHOSPHATASE 122 U/L (30-120); ALT (SGPT) 22 U/L (10-68); BILIRUBIN - TOTAL 0.41 mg/dL (0.2-1.3); CKMB 0.7 U/L (0.0-3.6); CREATINE KINASE 138 UL (21-215); MAGNESIUM - SERUM 2.1 mg/dL (1.8-2.4); TROPONIN-I < 0.017 ng/mL (0.000-0.060)
[2020-12-06 12:47] LABS: BILIRUBIN NEGATIVE (NEGATIVE); KETONE NEGATIVE (NEGATIVE); NITRITE NEGATIVE (NEGATIVE); UROBILINOGEN NORMAL mg/dL (< 2)
[2020-12-06 12:51] LABS: BACTERIA FEW HPF (NONE SEEN); SQUAMOUS EPITHELIAL 0-5 HPF (0-4); WHITE CELLS - URINE 0-5 HPF (0-4)
[2020-12-06 12:56] LABS: UDS - AMPHET NEGATIVE QUAL (NEGATIVE); UDS - BARB NEGATIVE QUAL (NEGATIVE); UDS - BENZO NEGATIVE QUAL (NEGATIVE); UDS - COCAINE POSITIVE QUAL (NEGATIVE); UDS - OPIATE NEGATIVE QUAL (NEGATIVE); UDS - PCP NEGATIVE QUAL (NEGATIVE); UDS - THC POSITIVE QUAL (NEGATIVE)
[2020-12-06 17:48] LABS: CKMB 0.6 U/L (0.0-3.6); CREATINE KINASE 122 UL (21-215); TROPONIN-I < 0.017 ng/mL (0.000-0.060)
[2020-12-06 23:46] LABS: CKMB 0.9 U/L (0.0-3.6); CREATINE KINASE 121 UL (21-215)
[2020-12-06 23:51] LABS: TROPONIN-I < 0.017 ng/mL (0.000-0.060)
[2020-12-07 02:00] VITALS: BP 133/65
[2020-12-07 04:00] VITALS: BP 117/59
[2020-12-07 04:50] LABS: BASOPHILS 0.7 % (0-2); EOSINOPHILS 1.4 % (0-7); HEMATOCRIT 35.3 % (36.0-48.0); HEMOGLOBIN 11.1 g/dL (12-16); MCH 29.3 pg (26.0-34.0); MCHC 31.3 g/dL (31.0-37.0); MCV 93.8 fL (80.0-100.0); MEAN PLATELET VOLUME 8.7 fL (7.4-10.4); MONOCYTES 7.1 % (2-11); NEUTROPHILS 67.8 % (40-80); PLATELET COUNT 262 10x3/uL (130-400); RBC 3.77 10x6/uL (4.00-5.40); RDW 16.3 % (11.5-14.5)
[2020-12-07 05:12] LABS: ALBUMIN 3.2 g/dL (3.4-5.0); ALKALINE PHOSPHATASE 109 U/L (30-120); ALT (SGPT) 24 U/L (10-68); BILIRUBIN - TOTAL 0.32 mg/dL (0.2-1.3); CALC OSMOLALITY 277 mosm/kg (275-300); CALCIUM 8.9 mg/dL (8.5-10.1); CARBON DIOXIDE 25.2 mmol/L (21.0-32.0); CHLORIDE - SERUM 104 mmol/L (98-107); CKMB 1.1 U/L (0.0-3.6); CREATINE KINASE 105 UL (21-215); CREATININE - SERUM 1.2 mg/dL (0.6-1.3); GLUCOSE 117 mg/dL (74-106); POTASSIUM - SERUM 5.6 mmol/L (3.5-5.1); PROTEIN - SERUM 7.5 g/dL (6.4-8.2); SODIUM 136 mmol/L (136-145); TROPONIN-I < 0.017 ng/mL (0.000-0.060); UREA NITROGEN 27 mg/dL (7-18); eGFR NON AFRICAN AMERICAN 50 mL/min (90-120)
[2020-12-07 06:00] VITALS: BP 135/87
--- NOTE | 2020-12-07 09:24 | EC ---
PATIENT:JUAN DIAZ DATE OF SERVICE: 12/06/20 SEX: F MEDICAL RECORD: [id number] DATE OF : [birth year] LOCATION:[place] [address] AGE OF PATIENT: 55 ADMISSION DATE: 12/06/20 REFERRING PHYSICIAN: INTERPRETING PHYSICIAN: BLESSING KINNEY MD ECHOCARDIOGRAM REPORT ECHO CHARGES 4 ECHO COMPLETE Date: 12/06/20 CLINICAL DIAGNOSIS: CHEST PAIN, HX OF CAD/RECENT COCAINE USE ECHOCARDIOGRAPHIC MEASUREMENTS (adult normal given) AC root (d.<3.7cm) 3.9 cm LV Septum d (<1.2 cm> 1.3 cm Valve Excursion 1.3 cm LV Septum (systole) 1.4 cm Left Atria (s.<4.0cm> 4.2 cm LVPW d(<1.2cm) 1.5 cm RV (d.<2.3cm) 3.7 cm LVPW (sytole) 1.4 cm LV diastole(<5.6CM) 6.8 cm MV E-F(>70mm/sec) cm LV systole 5.2 cm LVOT Diameter 2.4 cm MV exc.(>10mm) 1.8 cm Est.ejection fraction (50-75%) % DOPPLER: LVIT cm/sec A 92.0 cm/sec E 106.0 cm/sec LA cm/sec RVSP 26 mmHg LVOT 115 cm/sec AOP1/2T m/s Asc. Ao 156 cm/sec RVOT 114 cm/sec RA cm/sec PA 138 cm/sec AV Gradient Peak 9.73 mmHg AV Mean 5.56 mmHg AV Area 3.3 cm MV Gradient Peak 4.89 mmHg MV Mean 2.39 mmHg MV Area cm COMMENTS: Registered Nurse Bone Marrow Transplant: 2 CRIS CRUZ Sheet Cutter: 3 Dr. Espinoza TAPE# PACS Pericardial Effusion N DATE OF SERVICE: Adequate 2D, color flow imaging, spectral Doppler, and M-Mode. FINDINGS: LVH is present. LV internal dimension was dilated. LV is globally hypokinetic. LV function is normal. EF greater than or equal to 55%. Aortic valve is tricuspid. No evidence of stenosis by Doppler interrogation. Left atrium is dilated at 4.2 cm. Mitral valve shows no prolapse. Moderate MR. Right-sided chambers are grossly normal. Mild TR. ECHOCARDIOGRAM REPORT [id number] JUAN DIAZ TRANSINT:[id number] Voice Confirmation ID: [id number] DOCUMENT ID: [id number] BLESSING KINNEY MD at 0924 CC: [id number] DICTATION DATE: 12/06/201658 INDUSTRY OPERATIONS INVESTIGATOR: 12/06/20 1746 ADM IN [facility] [address] [place] [address]
[2020-12-07 14:43] VITALS: Ht 154.9 cm; Wt 72.3 kg
[2020-12-07] MEDS ORDERED: ENTRESTO 24 MG1 EACH PO (17:13)
[2020-12-07] MEDS ORDERED: COREG 3.1253.125 MG PO (17:13)
[2020-12-07 19:35] VITALS: BP 132/85
== END 2020-12-07 18:34 | disposition home or self-care (01) ==
LOC: D.ER 10:55 → D.EDHOLD 12:57 → OBSVTIME 12:57 → D.EDHOLD 12:57
PROVIDERS: Emergency Medicine; ADMIT Emergency Medicine; ATTEND Emergency Medicine
DX: I25.119 Atherosclerotic heart disease of native coronary artery with unspecified angina pectoris (principal); R07.9 Chest pain, unspecified; I10 Essential (primary) hypertension; E78.5 Hyperlipidemia, unspecified; F19.10 Other psychoactive substance abuse, uncomplicated; F17.200 Nicotine dependence, unspecified, uncomplicated; E87.1 Hypo-osmolality and hyponatremia; N17.9 Acute kidney failure, unspecified; F14.10 Cocaine abuse, uncomplicated; F32.9 Major depressive disorder, single episode, unspecified; M50.30 Other cervical disc degeneration, unspecified cervical region